=== PATIENT | female | born 1965 | race Caucasian/White ===

== ENCOUNTER 2020-06-02 08:00 | Inpatient (IN) | payer OTHER ==
[2020-06-06 09:09] VITALS: BMI 33.8
[2020-06-09] MEDS ORDERED: HEPARIN NA (PORCINE) 5,000 UNITS/ML 1ML VIAL ONE (15:21)
[2020-06-09] MEDS ORDERED: BENZOIN/ALOE VERA/STORAX/TOLU 58 ML BOTTLE ONE (15:22)
[2020-06-09] MEDS ORDERED: MIDAZOLAM HCL 2 MG/2 ML SINGLE DOSE VIAL ONE (15:28)
[2020-06-09] MEDS ORDERED: DEXMEDETOMIDINE HCL 200 MCG/2 ML IVPB ONE (15:37)
[2020-06-09] MEDS ORDERED: PROPOFOL 20 ML ONE ×16 (15:44→18:35)
[2020-06-09] MEDS ORDERED: DESFLURANE GAS 240 ML BOTTLE IH ONE (16:05)
[2020-06-09] MEDS ORDERED: VANCOMYCIN 1,000 MG VIAL (RESTRICTED TO ID ONLY) ONE (16:18)
[2020-06-09] MEDS ORDERED: TRANEXAMIC ACID 1000 MG/10 ML VIAL ONE ×2 (16:18→18:21)
[2020-06-09] MEDS ORDERED: ceFAZolin SODIUM 1 GM VIAL IVPB ONE (16:21)
[2020-06-09] MEDS ORDERED: fentaNYL CITRATE 250 MCG/5 ML VIAL ONE (16:24)
[2020-06-09] MEDS ORDERED: ROCURONIUM BROMIDE 100 MG/10 ML VIAL ONE ×2 (16:25→17:56)
[2020-06-09] MEDS ORDERED: VANCOMYCIN 1,000 MG VIAL (RESTRICTED TO ID ONLY) IVPB ONE (16:30)
[2020-06-09] MEDS ORDERED: NEOSTIGMINE METHYLSULFATE 0.5 MG/ML - 10 ML MDV ONE (18:27)
[2020-06-09] MEDS ORDERED: THROMBIN (BOVINE) 5,000 UNIT VIAL TP ONE (19:08)
--- NOTE | 2020-06-09 20:09 | PN ---
Progress Note (short form) - Note Progress Note: 54F s/p C5, C6 corpectomies, C4-C7 anterior cervical decompression, cage reconstruction, and instrumented fusion POD #0. -Airway observation: In case of emergency, remove anterior cervical spine dressing, trim single end loop, and pull out running suture; ok to cut suture if needed to decompress hematoma. -Maintain head of bed 30-45 degrees. -Pain medication: per anaesthesia team; oral meds (oxycodone preferred), no JURY CONSULTANT; NO NSAID's. -DVT PPx: -Mechanical only: PRADEEP's, SCD's. -Post-op Ancef x 3 doses. -f/u AM labs. -Incentive spirometry. -PT/OT/Rehab, OOB. -WBAT B/L LE. -PWB B/L UE: 5lbs. -d/c Mo catheter in PACU; f/u TOV (8 hours max). -Decadron 10mg IV at midnight tonight. -Keep dressing clean & dry. -No heavy lifting (>5 lbs), bending or twisting x 6 months post op. -Start with soft diet; advance diet as tolerated. -B/L UE & LE NV checks. -f/u post-op x-rays tomorrow. -Care per ICU & [facility] hospitalist team. -Discharge planning: f/u [facility] [place] office 7-10 days after discharge; call for appointment; . oTni Washington MD (Orthopaedic Surgery).
--- NOTE | 2020-06-09 20:10 | OP ---
Operative Note - Note: Operative Date: 06/09/20 Pre-Operative Diagnosis: 1. Severe C4-C7 spinal stenosis with associated myelopathy & radiculopathy. 2. C4-C7 kyphotic deformity. 3. C4-C7 axial instability with myofascial pain complex. 4. C4-C5, C5-C6, C6-C7 intervertberal disc disorders with associated spondylosis Operation: 1. C5, C6 corpectomies. 2. C4, C7 hemicorpectomies. 3. C4-C5, C5- C6, C6-C7 discectomies. 4. C4-C7 anterior column reconstruction with corpectomy cage. 5. C4-C5, C5-C6, C6-C7 anterior arthrodesis. 6. C4-C7 anterior instrumentation. 7. Kyphosis deformity correction with religious of lordosis. 8. Microsurgical dissection. 9. Bone autograft. 10. Bone allograft. 11. Fluoroscopy Findings: Severe spinal stenosis Implants: Cage: Choice Spine [place]: 36mm. Plate: Precision Spine [place]: 41mm. Screws: 4x12mm Post-Operative Diagnosis: Same as Pre-op Surgeon: Toni Washington Master Control Supervisor: Darrius Washington Anesthesiologist/REED MAKER: Casepr Delgadillo Anesthesia: General Specimens Removed: C4-C5, C5-C6, C6-C7 disc Estimated Blood Loss (mls): 300 Blood Volume Replaced (mls): 125 (Cell saver) Fluid Volume Replaced (mls): 1,800 (Crystalloid) Operative Report Dictated: Yes
[2020-06-09] MEDS ORDERED: ONDANSETRON 4 MG/2 ML VIAL IVPUSH PRN (20:25)
[2020-06-09] MEDS ORDERED: oxyCODONE HCL 5 MG TABLET PO PRN (20:25)
[2020-06-09] MEDS ORDERED: LACTATED RINGERS SOLUTION 1,000 ML IV SCH (20:30)
[2020-06-09] MEDS ORDERED: ACETAMINOPHEN INJECTION 100 ML IVPB ONE (20:32)
[2020-06-09] MEDS: ACETAMINOPHEN 1000 MG/100 ML VIAL (NON FORMULARY) IVPB SCH (20:45)
[2020-06-09] MEDS: LACTATED RINGERS SOLUTION 1,000 ML IV SCH (21:00)
[2020-06-09] MEDS ORDERED: LABETALOL HCL 5 MG/1 ML (100MG/20 ML VIAL) IVPUSH ONE (21:53)
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
[2020-06-09] MEDS: AMITRIPTYLINE HCL 25 MG TABLET PO SCH (23:22)
[2020-06-09] MEDS ORDERED: DEXAMETHASONE SOD PHOSPHATE 10 MG/1 ML VIAL IVPUSH ONE (23:30)
[2020-06-09] MEDS: oxyCODONE HCL 5 MG TABLET PO PRN (23:38)
[2020-06-10] MEDS: ceFAZolin 2 GRAM PREMIX BAG IVPB SCH ×3 (00:03→12:59)
[2020-06-10] MEDS: oxyCODONE HCL 5 MG TABLET PO PRN ×3 (04:38→21:17)
[2020-06-10] MEDS: ACETAMINOPHEN 1000 MG/100 ML VIAL (NON FORMULARY) IVPB SCH ×2 (04:39→12:58)
--- NOTE | 2020-06-10 07:13 | OP ---
DATE OF OPERATION: DATE OF DICTATION: 06/09/2020 SURGEON: Toni Washington MD SERVER SOFTWARE ENGINEER: Darrius Washington MD PREOPERATIVE DIAGNOSIS: C5-C6 disk prolapse with associated C5 and C6 stenosis and kyphosis cervical spine with cervical spondylogenic myelopathy. POSTOPERATIVE DIAGNOSIS: C5-C6 disk prolapse with associated C5 and C6 stenosis and kyphosis cervical spine with cervical spondylogenic myelopathy. OPERATION: 1. Corpectomy C5 and C6. 2. Partial corpectomy C4. 3. Partial corpectomy C7. 4. Insertion of interbody cage C4 to C7. 5. Anterior plating C4 to C7. 6. Anterior arthrodesis C4 to C7. ANESTHESIA: General anesthesia. ANTIBIOTICS GIVEN: Ancef 2 g, 1 g vancomycin preoperative; 10 mg of Decadron preoperative; and 10 mg of tranexamic acid utilized. Cell Saver utilized. IMAGING: Intraoperative neural monitoring utilized. Biplane fluoroscopy utilized. INDICATION FOR SURGERY: Patient had progressive combined radicular myelopathic symptoms and signs and confirmed MR indication of significant central canal stenosis at C5 and C6 with kyphotic deformity. OPERATION DETAILS: Patient correctly identified, brought in operating room. In the supine position, following general anesthesia, motor-evoked potentials were run through the patient, and then the patient was placed in the supine position in the extended neck position with the neck with a bolster placed behind the scapulae. This was extremely difficult because of the short, squat meso-ectomorphic patient morphology. In the supine position in the lines of Mushtaq, at the cricothyroid interval, an incision was made extending from just the left midline region across laterally measuring approximately 2 inches. The platysma was transected. The 2 large anterior jugular veins were transected and ligated. The subfascial plane was developed, developing the subfascial region, creating easy access to the subfascial plane proximally and distally, thus exposing the entire strap muscle structures with digital palpation lateral to the strap muscles from the right hand side, the viscera were retracted to the left and the great vessels and sheath of the great vessels retracted to the right. The raphe of the longus colli were readily identified using a peanut, a 90-90 degree angled 18-gauge spinal needle placed in the disk at C4-C5. This was verified under lateral fluoroscopic x-ray. Once this had been performed using the appropriate retractors for medial lateral retraction which remained a difficult exercise because of the short, squat thickness of the neck, the longus colli muscle was dissected off the actual bone bed. This was performed to enable seating of the teeth of the actual retractors to be placed and maintained within the longus colli muscle themselves. Two Gilbert pins were placed, one in the body of C4 and one in the body of C7 and the distractor outrigger applied to the Gilbert pins. It was impossible to visualize these pins because of the short, squat nature of her size and no ability to enjoy x-ray of visualization of these structures. The annuli of C4-C5, C5-C6, and C6-C7 under microscopic visualization were cut off the actual bone bed and then all the disk material at C4-C5, C5-C6, and C6-C7 removed using a simple curet. This enabled visualization of the disks right down to the posterior longitudinal ligament at each level. The light microscopy facilitated this readily. Using a Midas Román bur, some bone was removed, and then using Leksell rongeurs, as much bone was resected off the vertebral bodies of these 2 levels, that is, C5 and C6, and then a complete corpectomy performed using a murray-tipped rough bur all the way down to the posterior longitudinal ligaments, the endplates of C4 were flattened parallel to marrying up to the endplate of C7, that is, the superior endplate of C7 and the inferior endplate of C4. These were visualized as flat and parallel. The endplates were maintained as best we can, that is, the hard bone of the endplate to facilitate fixation of the cage. Once all bone had been removed, the remaining soft tissue off the theca was completely removed using a Kerrison upcuts, these were measuring size 1 and 2. The entire soft tissue elements were freed and the theca noted free bulging into the wound itself, complete decompression from cranial to caudal from C4 to C7 and mediolaterally brought out widely to facilitate positioning of a 12-mm wide cage. This was a [place] size 36 x 14 x 12-mm cage. The distraction enabled easy seating of the cage. This had to be gently tapped into position with the distraction device applied and then releasing the distraction. Ligamentotaxis enabled the bone bed to crush itself and sink into the cage, thus facilitating solid fixation of the cage. The cage was filled with bone putty. A size 41 Simplicity plate was applied and two 12-mm screws inserted into the body of C4 and two 12-mm screws inserted into the body of C7, solid fixation having been achieved. At no point were there any neuromonitoring problems. A Valsalva maneuver was performed at the end of the procedure, and this was held at 40 mmHg for about a 10-second period; no CSF leak and no hemorrhage from any leaking venous structures. The wounds were thoroughly lavaged throughout. Closure: Investing fascia 2-0 Vicryl, subcutaneous 2-0 Vicryl, skin 3-0 Monocryl, Steri-Strips, no drains applied. The wound was bone dry by the time we started wound closure. X-ray: Postoperative x-rays for best we could see revealed excellent positioning of the implants. No complications. Operation went well. Extremely difficult procedure because of her short but thick and obese morphology. MD AYESHA Celeste/[id number]
[2020-06-10 07:36] LABS: MCH 27.5 pg (25.7-33.7); MCHC 33.2 g/dl (32.0-36.0); MEAN PLT VOLUME 7.9 fl (7.5-11.1); PLATELET COUNT 307 K/MM3 (134-434); RBC 4.34 M/mm3 (3.60-5.2); RDW 14.1 % (11.6-15.6); WHITE BLOOD COUNT 14.8 K/mm3 (4.0-10.0)
[2020-06-10 07:41] LABS: BLOOD UREA NITROGEN 10.1 mg/dL (7-18); CALCIUM 8.9 mg/dL (8.5-10.1); CREATININE 0.8 mg/dL (0.55-1.3); PHOSPHOROUS 3.9 mg/dL (2.5-4.9); POTASSIUM 4.5 mmol/L (3.5-5.1)
--- NOTE | 2020-06-10 08:14 | PN ---
Progress Note (short form) - Note Progress Note: Anesthesia/Pain Pt seen and examined S:Alert and awake,comfortable O: Vital Signs Temperature 98.4 F 06/10/20 06:00 Pulse Rate 96 H 06/10/20 06:00 Respiratory Rate 18 06/10/20 06:00 Blood Pressure 152/90 06/10/20 06:00 O2 Sat by Pulse Oximetry (%) 96 06/10/20 06:00 CBC, BMP 06/10/20 05:45 06/10/20 05:45 A/P; s/p laminectomy Doing well post op Continue current care Robert Devlin M.D.
[2020-06-10] MEDS ORDERED: amLODIPine BESYLATE 5 MG TABLET (FP) PO ONE (09:00)
[2020-06-10] MEDS ORDERED: PT OWN MED DRAWER 7, Y5N ONE (09:09)
[2020-06-10] MEDS ORDERED: DULoxetine HCL 30 MG CAPSULE.DR PO ONE (09:09)
[2020-06-10] MEDS: DULoxetine HCL 60 MG CAPSULE.DR PO SCH (09:41)
--- NOTE | 2020-06-10 12:03 | PN ---
Physical Exam: SUBJECTIVE: Patient seen and examined. Endorses neck pain that is adequately managed with pain medications. OBJECTIVE: Vital Signs Period Temp Pulse Resp BP Sys/Carreno Pulse Ox Last 24 Hr 97.7 F-98.6 F 80-115 11-18 105-164/57-106 95-100 GENERAL: The patient is awake, alert, and fully oriented, in no acute distress. HEENT: Normal with no signs of trauma. PERRL, EOMI, MMM, neck bandaged LUNGS: Breath sounds equal, clear to auscultation bilaterally, no wheezes, no crackles, no accessory muscle use. HEART: Regular rate and rhythm, S1, S2 without murmur, rub or gallop. ABDOMEN: Soft, nontender, nondistended, normoactive bowel sounds, no guarding, no rebound EXTREMITIES: 2+ pulses, warm, well-perfused, no edema. Strength 5/5 throughout. Sensation intact throughout NEUROLOGICAL: Cranial nerves II through XII grossly intact. Normal speech, gait not observed. PSYCH: Normal mood, normal affect. SKIN: Warm, dry, normal turgor, no rashes or lesions noted Laboratory Results - last 24 hr 06/10/20 06/10/20 05:45 05:45 WBC 14.8 H RBC 4.34 Hgb 12.0 Hct 36.0 MCV 83.0 MCH 27.5 MCHC 33.2 RDW 14.1 Plt Count 307 MPV 7.9 Sodium 137 Potassium 4.5 Chloride 103 Carbon Dioxide 27 Anion Gap 7 L BUN 10.1 Creatinine 0.8 Est GFR (CKD-EPI)AfAm 95.52 Est GFR (CKD-EPI)NonAf 82.42 Random Glucose 169 H Calcium 8.9 Phosphorus 3.9 Magnesium 2.0 Active Medications Generic Name Dose Route Start Last Admin Trade Name Freq PRN Reason Stop Dose Admin Acetaminophen 1,000 mg 06/09/20 20:30 06/10/20 04:39 Ofirmev Injection - IVPB 06/10/20 12:31 1,000 mg Q8H EVITA Administration Amitriptyline HCl 25 mg 06/09/20 22:00 06/09/20 23:22 Elavil - PO Not Given HS EVITA Cefazolin Sodium/Dextrose 2 gm 06/10/20 01:00 06/10/20 06:05 Ancef 2 Gm Premixed Ivpb - IVPB 06/10/20 13:01 2 gm Q6H EVITA Administration Duloxetine HCl 60 mg 06/10/20 10:00 06/10/20 09:41 Cymbalta - PO 60 mg DAILY EVITA Administration Lactated Ringer's 1,000 mls @ 125 mls/hr 06/09/20 20:30 06/09/20 21:00 Lactated Ringers Solution IV 125 mls ASDIR EVITA Administration Ondansetron HCl 4 mg 06/09/20 20:25 Zofran Injection IVPUSH Q6H PRN NAUSEA AND/OR VOMITING Oxycodone HCl 5 mg 06/09/20 20:25 Roxicodone - PO Q4H PRN PAIN LEVEL 1-5 Oxycodone HCl 10 mg 06/09/20 20:25 06/10/20 10:36 Roxicodone - PO 10 mg Q4H PRN Administration PAIN LEVEL 6-10 ASSESSMENT/PLAN: 54 YO F with PMH Sjogrens, fibromyalgia, and osteoarthritis was admitted to ICU for post-op management for ICU S/P C5, C6 corpectomies, C4-C7 anterior cervical decompression, cage reconstruction, and instrumented fusion. POD#1 Neuro #POD#1 C5, C6 corpectomies, C4-C7 anterior cervical decompression, cage reconstruction, and instrumented fusion. - No NSAIDS, NO VENEER GLUER - oxycodone for pain - Maintain head of bed 30-45 degrees. - No heavy lifting (> 5 lbs), bending or twisting x 6 months post op Pulm -encourage Incentive spirometry use Cardio - patient was hypertensive overnight, but she denies PMH of HTN. S/p labetalol 10 mg IV push in PACU. Given amlodipine 5 mg PO Once this AM. -continue monitoring blood pressure GI - Zofran 4 mg IV push Q6H PRN for nausea Renal - marquez out in PACU -BUN/Cr 10.1/0.8 ID - Post-op Ancef x 3 doses Heme #Leukocytosis: WBCs 14.8 -likely 2/2 Decadron FEN - LR @ 125cc/hr - monitor lytes - NPO DVT ppx -Mechanical only: PRADEEP's, SCD's. DISPO ICU ATTENDING PHYSICIAN STATEMENT I saw and evaluated the patient. I reviewed the resident's note and discussed the case with the resident. I agree with the resident's findings and plan as documented. SUBJECTIVE: OBJECTIVE: ASSESSMENT AND PLAN:
[2020-06-10] MEDS: LACTATED RINGERS SOLUTION 1,000 ML IV SCH ×2 (13:01→21:06)
--- NOTE | 2020-06-10 15:45 | PN ---
Teaching Attending Note Name of Resident: David Rick ATTENDING PHYSICIAN STATEMENT I saw and evaluated the patient. I reviewed the resident's note and discussed the case with the resident. I agree with the resident's findings and plan as documented. SUBJECTIVE: 54 F, "Seasonal Asthma", dyslexia, sjogrens, fibromyalgia, and osteoarthritis. Seen in the ICU. POD #1 : S/P C5, C6 corpectomies, C4-C7 anterior cervical decompression, cage reconstruction, and instrumented fusion. Pain level : 4/10. Denies CP or SOB. Some sore throat. Migraine HARPER this AM. Hemodynamics have been stable. Intake & Output 06/07/20 06/08/20 06/09/20 06/10/20 23:59 23:59 23:59 23:59 Intake Total 2250 2300 Output Total 1100 1600 Balance 1150 700 Weight 185 lb Last Vital Signs Temp Pulse Resp BP Pulse Ox 98.0 F 103 H 13 135/86 96 06/10/20 14:00 06/10/20 14:00 06/10/20 14:00 06/10/20 14:00 06/10/20 14:00 Active Medications Amitriptyline HCl (Elavil -) 25 mg PO HS [facility] Last Admin: 06/09/20 23:22 Dose: Not Given Documented by: Duloxetine HCl (Cymbalta -) 60 mg PO DAILY [facility] Last Admin: 06/10/20 09:41 Dose: 60 mg Documented by: Lactated Ringer's (Lactated Ringers Solution) 1,000 mls @ 125 mls/hr IV ASDIR [facility] Last Admin: 06/10/20 13:01 Dose: 125 mls/hr Documented by: Ondansetron HCl (Zofran Injection) 4 mg IVPUSH Q6H PRN PRN Reason: NAUSEA AND/OR VOMITING Last Admin: 06/10/20 12:11 Dose: 4 mg Documented by: Oxycodone HCl (Roxicodone -) 5 mg PO Q4H PRN PRN Reason: PAIN LEVEL 1-5 Oxycodone HCl (Roxicodone -) 10 mg PO Q4H PRN PRN Reason: PAIN LEVEL 6-10 Last Admin: 06/10/20 10:36 Dose: 10 mg Documented by: REVIEW OF SYSTEMS: CONSTITUTIONAL: HARPER Absent: fever, chills, diaphoresis, generalized weakness, malaise, loss of appetite, weight change HEENT: Absent: rhinorrhea, nasal congestion, throat pain, throat swelling, difficulty swallowing, mouth swelling, ear pain, eye pain, visual changes CARDIOVASCULAR: Absent: chest pain, syncope, palpitations, irregular heart rate, lightheadedness, peripheral edema RESPIRATORY: Absent: cough, shortness of breath, dyspnea with exertion, orthopnea, wheezing, stridor, hemoptysis GASTROINTESTINAL: Absent: abdominal pain, abdominal distension, nausea, vomiting, diarrhea, constipation, melena, hematochezia GENITOURINARY: Absent: dysuria, frequency, urgency, hesitancy, hematuria, flank pain, genital pain MUSCULOSKELETAL: Absent: myalgia, arthralgia, joint swelling, back pain, neck pain SKIN: Absent: rash, itching, pallor HEMATOLOGIC/IMMUNOLOGIC: Absent: easy bleeding, easy bruising, lymphadenopathy, frequent infections ENDOCRINE: Absent: unexplained weight gain, unexplained weight loss, heat intolerance, cold intolerance NEUROLOGIC: Absent: headache, focal weakness or paresthesias, dizziness, unsteady gait, seizure, mental status changes, bladder or bowel incontinence PSYCHIATRIC: Absent: anxiety, depression, suicidal or homicidal ideation, hallucinations. PHYSICAL EXAMINATION Laboratory Results - last 24 hr 06/09/20 06/10/20 06/10/20 09:16 05:45 05:45 WBC 14.8 H RBC 4.34 Hgb 12.0 Hct 36.0 MCV 83.0 MCH 27.5 MCHC 33.2 RDW 14.1 Plt Count 307 MPV 7.9 Sodium 137 Potassium 4.5 Chloride 103 Carbon Dioxide 27 Anion Gap 7 L BUN 10.1 Creatinine 0.8 Est GFR (CKD-EPI)AfAm 95.52 Est GFR (CKD-EPI)NonAf 82.42 Random Glucose 169 H Calcium 8.9 Phosphorus 3.9 Magnesium 2.0 Crossmatch See Detail GENERAL: Awake and alert, NAD HEAD: Normal with no signs of trauma. EYES: EOMI ENT: Anterior incision site on neck bandaged. Moist mucous membranes LUNGS: CTA BL HEART: RRR, S1, S2 ABDOMEN: soft, non-tender, non-distended MSK: moving all limbs spontaneously, all limbs are warm, No edema BL legs NEUROLOGICAL: Non-focal SKIN: Warm, dry, no rashes or lesions noted. Laboratory Results - last 24 hr 06/09/20 06/10/20 06/10/20 09:16 05:45 05:45 WBC 14.8 H RBC 4.34 Hgb 12.0 Hct 36.0 MCV 83.0 MCH 27.5 MCHC 33.2 RDW 14.1 Plt Count 307 MPV 7.9 Sodium 137 Potassium 4.5 Chloride 103 Carbon Dioxide 27 Anion Gap 7 L BUN 10.1 Creatinine 0.8 Est GFR (CKD-EPI)AfAm 95.52 Est GFR (CKD-EPI)NonAf 82.42 Random Glucose 169 H Calcium 8.9 Phosphorus 3.9 Magnesium 2.0 Crossmatch See Detail ASSESSMENT/PLAN: POD #1 :S/P C5, C6 corpectomies, C4-C7 anterior cervical decompression, cage reconstruction, and instrumented fusion. "Seasonal Asthma" : Stable Dyslexia Sjogrens Fibromyalgia Osteoarthritis Pain control with Oxycodone Trial of IV Acetaminophen for HARPER Supplemental O2 as needed VTE prophylaxis No NSAIDS Maintain head of bed 30-45 degrees. Noted Decadron was given Incentive spirometry BP monitoring Post-op ABX OOB/PT/Activity per Surgery IVF PO as tolerated Floor when cleared by surgery Dr Burr
--- NOTE | 2020-06-10 16:26 | HOSP ---
Physical Examination Vital Signs: Vital Signs Temperature 98.0 F 06/10/20 14:00 Pulse Rate 103 H 06/10/20 14:00 Respiratory Rate 13 06/10/20 14:00 Blood Pressure 135/86 06/10/20 14:00 O2 Sat by Pulse Oximetry (%) 96 06/10/20 14:00 Constitutional: Yes: No Distress HENT: Yes: Atraumatic, Normocephalic Neck: Yes: Other (neck bandaged) Cardiovascular: Yes: Regular Rate and Rhythm, S1, S2 Respiratory: Yes: Regular, CTA Bilaterally Labs: CBC, BMP 06/10/20 05:45 06/10/20 05:45 Hospitalist Encounter Assessment: Patient is a 54 YO F with PMH Sjogrens, fibromyalgia, and osteoarthritis who was admitted to ICU for post-op management for ICU S/P C5, C6 corpectomies, C4-C7 anterior cervical decompression, cage reconstruction, and instrumented fusion. POD#1. For pain, patient received oxycodone and nausea was managed with zofran. Per ortho note, No NSAIDS, NO UNDER SHERIFF. Incentive spirometry use was encouraged. The head of bed was maintained at 30-45 degrees. Patient should not perform any heavy (> 5 lbs), bending or twisting x 6 months post op. Overnight, patient was hypertensive, but she denies PMH of HTN. S/p labetalol 10 mg IV push in PACU. Given amlodipine 5 mg PO Once this AM. In addition, WBCs were elevated at 14.8, which is likely due to the decadron. Per ortho, DVT prophylaxis should only be Mechanical (PRADEEP's, SCD's). Patient is stable for discharge.
[2020-06-10] MEDS ORDERED: ACETAMINOPHEN INJECTION 100 ML IVPB ONE (21:13)
[2020-06-10] MEDS: AMITRIPTYLINE HCL 25 MG TABLET PO SCH (21:17)
[2020-06-11 07:44] LABS: HEMATOCRIT 35.9 % (32.4-45.2); HEMOGLOBIN 11.6 GM/dL (10.7-15.3); MCHC 32.4 g/dl (32.0-36.0); MEAN CELL VOLUME 83.5 fl (80-96); MEAN PLT VOLUME 7.6 fl (7.5-11.1); PLATELET COUNT 339 K/MM3 (134-434); RDW 14.6 % (11.6-15.6); WHITE BLOOD COUNT 16.6 K/mm3 (4.0-10.0)
[2020-06-11 07:48] LABS: BLOOD UREA NITROGEN 10.8 mg/dL (7-18); CALCIUM 8.9 mg/dL (8.5-10.1); CREATININE 0.6 mg/dL (0.55-1.3); MAGNESIUM 2.4 mg/dL (1.8-2.4); PHOSPHOROUS 3.1 mg/dL (2.5-4.9); POTASSIUM 4.7 mmol/L (3.5-5.1)
[2020-06-11] MEDS ORDERED: DULoxetine HCL 30 MG CAPSULE.DR PO ONE (09:27)
[2020-06-11] MEDS: DULoxetine HCL 60 MG CAPSULE.DR PO SCH (09:31)
--- NOTE | 2020-06-11 11:52 | HOSP ---
Subjective - Review of Symptoms Events since last encounter: Medicine Service acceptance note: Subjective: Patient seen and examined at bedside. No acute overnight events. Does not endorse any complaints. Physical Examination Vital Signs: Vital Signs Temperature 98.6 F 06/11/20 10:00 Pulse Rate 100 H 06/11/20 10:00 Respiratory Rate 17 06/11/20 10:16 Blood Pressure 126/82 06/11/20 10:00 O2 Sat by Pulse Oximetry (%) 99 06/11/20 10:16 Findings/Remarks: GENERAL: The patient is awake, alert, and fully oriented, in no acute distress. HEAD: Normocephalic, atraumatic. EYES: PERRL, extraocular movements intact, sclera anicteric, conjunctiva clear. ENT: Oropharynx clear, without erythema or exudates. Moist mucous membranes. NECK: Anterior dressing, clean, dry, intact. Negative stridor auscultated. Supple without lymphadenopathy. LUNGS: Breath sounds equal, clear to auscultation bilaterally. No wheezes, no crackles. No accessory muscle use. HEART: Regular rate and rhythm. S1, S2 without murmur, rub or gallop. ABDOMEN: Soft, nondistended, nontender to light and deep palpation x4 quadrants. No rebound tenderness, no guarding. Normoactive bowel sounds x4 quadrants. No hepatosplenomegaly, no masses appreciated. EXTREMITIES: 2+ radial, dorsalis pedis pulses bilaterally. Warm, well-perfused. No lower extremity edema bilaterally. NEUROLOGICAL: Cranial nerves II through XII grossly intact. Normal speech. No gross focal deficits. PSYCH: Normal mood, normal affect upon my encounter. SKIN: Warm, dry. Labs: CBC, BMP 06/11/20 06:00 06/11/20 06:00 Hospitalist Encounter Assessment: Patient is a 54 year old female with history of Sjrogens, fibromyalgia, osteoarthritis admitted to ICU s/p C5, C6 corpectomies, C4, C7 hemicorpectomies, C4-C5, C5-C6, C6-C7 discectomies, C4-C7 anterior column reconstruction with corpectomy cage, C4-C5, C5-C6, C6-C7 anterior arthrodesis, C4-C7 anterior instrumentation. Cervical spinal stenosis -POD # 2 s/p orthopedic surgery -Pain management with Acetaminophen, Oxycodone (avoid NSAIDs, per Orthopedic Surgery) -Avoid lifting anything greater than 5 pounds, bending or twisting for six months postoperatively -Physical therapy evaluation -Incentive spirometer Leukocytosis -Suspect secondary to Decadron administered intra-operatively. Patient has remained afebrile -Patient received Ancef postoperatively -Monitor CBC, fever curve Hypertension -Initiated on Amlodipine 5mg PO daily. FEN -No IV fluids indicated. Tolerating oral fluids -Follow BMP -Puree diet. Advance as tolerated Disposition -Patient admitted to Medicine Service Transfer to Medical- Surgical floor. Visit type - Emergency Visit Emergency Visit: No - New Patient This patient is new to me today: Yes Date on this admission: 06/11/20 - Critical Care Critical Care patient: No
[2020-06-11] MEDS ORDERED: METOCLOPRAMIDE HCL INJECTION 10 MG/2 ML VIAL IVPB ONE (12:09)
[2020-06-11] MEDS ORDERED: ACETAMINOPHEN 650 MG/20.3 ML ORAL SOLUTION (CUPS) PO ONE (12:10)
--- NOTE | 2020-06-11 12:26 | PN ---
Teaching Attending Note Name of Resident: David Rick ATTENDING PHYSICIAN STATEMENT I saw and evaluated the patient. I reviewed the resident's note and discussed the case with the resident. I agree with the resident's findings and plan as documented. SUBJECTIVE: Pt seen and examined in the ICU. Pain relatively controlled. Ambulating with PT. OBJECTIVE: Vital Signs Period Temp Pulse Resp BP Sys/Carreno Pulse Ox Last 24 Hr 97.8 F-98.7 F 88-125 12-18 125-157/78-106 96-99 Intake & Output 06/08/20 06/09/20 06/10/20 06/11/20 23:59 23:59 23:59 23:59 Intake Total 2250 4100 1600 Output Total 1100 2000 500 Balance 1150 2100 1100 Weight 83.915 kg Gen: NAD at rest Heart: RRR Lung: decreased breath sounds at the bases Abd: soft, nontender Ext: no edema CBC, BMP 06/11/20 06:00 06/11/20 06:00 Active Medications Acetaminophen (Tylenol Oral Solution -) 650 mg PO ONCE ONE Stop: 06/11/20 12:11 Amitriptyline HCl (Elavil -) 25 mg PO HS [facility] Last Admin: 06/10/20 21:17 Dose: 25 mg Documented by: Duloxetine HCl (Cymbalta -) 60 mg PO DAILY [facility] Last Admin: 06/11/20 09:31 Dose: 60 mg Documented by: Lactated Ringer's (Lactated Ringers Solution) 1,000 mls @ 125 mls/hr IV ASDIR [facility] Last Admin: 06/10/20 21:06 Dose: Not Given Documented by: Metoclopramide HCl (Reglan Injection -) 10 mg IVPB ONCE ONE Stop: 06/11/20 12:10 Ondansetron HCl (Zofran Injection) 4 mg IVPUSH Q6H PRN PRN Reason: NAUSEA AND/OR VOMITING Last Admin: 06/10/20 12:11 Dose: 4 mg Documented by: Oxycodone HCl (Roxicodone -) 5 mg PO Q4H PRN PRN Reason: PAIN LEVEL 1-5 Oxycodone HCl (Roxicodone -) 10 mg PO Q4H PRN PRN Reason: PAIN LEVEL 6-10 Last Admin: 06/10/20 21:17 Dose: 10 mg Documented by: ASSESSMENT AND PLAN: Severe C4-C7 spinal stenosis with associated myelopathy & radiculopathy s/p C5, C6 corpectomies/C4, C7 hemicorpectomies/C4-C5, C5-C6, C6-C7 discectomies/C4-C7 anterior column reconstruction with corpectomy cage/C4-C5, C5-C6, C6-C7 anterior arthrodesis/C4-C7 anterior instrumentation Sjogrens Fibromyalgia OA - pain control - incentive spirometry - PO as tolerated - rehab/PT - DVT prophylaxis - can monitor on floor
--- NOTE | 2020-06-11 12:39 | PATH ---
Surgical Pathology Report Patient Name: MEHUL TO [facility]. Rec. #: [id number] /Age/Gender: 1965 (Age: 54) / F Account: [id number] Location: [facility] CATERING ASSISTANT Taken: 06/09/2020 Received: 06/10/2020 Reported: 06/11/2020 Physicians: Toni Washington M.D. Specimen(s) Received C5-C6 Clinical History Cervical spondylogenic myelopathy Final Diagnosis DISC, C5-C6, CORPECTOMY: BENIGN INTERVERTEBRAL DISC TISSUE. Electronically Signed Monica Garcia M.D. Gross Description Received in formalin labeled "C5-C6 disc," is a 3.0 x 3.0 x 0.3 cm aggregate of valencia fragments of fibrocartilaginous tissue. A loss control representative portion is submitted in one cassette. DL/06/10/2020 saudi/06/10/2020
--- NOTE | 2020-06-11 16:12 | PN ---
Physical Exam: SUBJECTIVE: Patient seen and examined. Endorses neck pain that is adequately managed with pain control. Endorses oxycodone 10 mg makes her feel "loopy." OBJECTIVE: Vital Signs Period Temp Pulse Resp BP Sys/Carreno Pulse Ox Last 24 Hr 97.9 F-98.7 F 88-125 12-18 106-157/65-106 95-99 GENERAL: The patient is awake, alert, and fully oriented, in no acute distress. HEENT: Normal with no signs of trauma. PERRL, EOMI, MMM, neck bandaged LUNGS: Breath sounds equal, clear to auscultation bilaterally, no wheezes, no crackles, no accessory muscle use. HEART: Regular rate and rhythm, S1, S2 without murmur, rub or gallop. ABDOMEN: Soft, nontender, nondistended, normoactive bowel sounds, no guarding, no rebound EXTREMITIES: 2+ pulses, warm, well-perfused, no edema. Strength 5/5 throughout. Sensation intact throughout NEUROLOGICAL: Cranial nerves II through XII grossly intact. Normal speech, gait not observed. PSYCH: Normal mood, normal affect. SKIN: Warm, dry, normal turgor, no rashes or lesions noted Laboratory Results - last 24 hr 06/09/20 06/11/20 06/11/20 09:16 06:00 06:00 WBC 16.6 H RBC 4.30 Hgb 11.6 Hct 35.9 MCV 83.5 MCH 27.0 MCHC 32.4 RDW 14.6 Plt Count 339 MPV 7.6 Sodium 139 Potassium 4.7 Chloride 104 Carbon Dioxide 31 Anion Gap 4 L BUN 10.8 Creatinine 0.6 Est GFR (CKD-EPI)AfAm 118.09 Est GFR (CKD-EPI)NonAf 101.89 Random Glucose 117 H Calcium 8.9 Phosphorus 3.1 Magnesium 2.4 Blood Type A POSITIVE Antibody Screen Negative Crossmatch See Detail Active Medications Generic Name Dose Route Start Last Admin Trade Name Freq PRN Reason Stop Dose Admin Amitriptyline HCl 25 mg 06/09/20 22:00 06/10/20 21:17 Elavil - PO 25 mg HS EVITA Administration Duloxetine HCl 60 mg 06/10/20 10:00 06/11/20 09:31 Cymbalta - PO 60 mg DAILY EVITA Administration Ondansetron HCl 4 mg 06/09/20 20:25 06/10/20 12:11 Zofran Injection IVPUSH 4 mg Q6H PRN Administration NAUSEA AND/OR VOMITING Oxycodone HCl 5 mg 06/09/20 20:25 Roxicodone - PO Q4H PRN PAIN LEVEL 1-5 Oxycodone HCl 10 mg 06/09/20 20:25 06/10/20 21:17 Roxicodone - PO 10 mg Q4H PRN Administration PAIN LEVEL 6-10 ASSESSMENT/PLAN: 54 YO F with PMH Sjogrens, fibromyalgia, and osteoarthritis was admitted to ICU for post-op management for ICU S/P C5, C6 corpectomies, C4-C7 anterior cervical decompression, cage reconstruction, and instrumented fusion. POD#2 Neuro #POD#2 C5, C6 corpectomies, C4-C7 anterior cervical decompression, cage reconstruction, and instrumented fusion. - No NSAIDS, NO MATERIAL CUTTER - oxycodone for pain - Maintain head of bed 30-45 degrees. - No heavy lifting (> 5 lbs), bending or twisting x 6 months post op #Migraine -tylenol Pulm -encourage Incentive spirometry use Cardio - patient was hypertensive overnight, but she denies PMH of HTN. -continue monitoring blood pressure GI - Zofran 4 mg IV push Q6H PRN for nausea Renal -BUN/Cr 10.8/0.6 ID - Post-op Ancef x 3 doses Heme #Leukocytosis: WBCs increased from 14.8 to 16.6 -likely 2/2 Decadron FEN - ivf stopped - monitor lytes - pureed diet DVT ppx -Mechanical only: PRADEEP's, SCD's. DISPO transfer to med surg ATTENDING PHYSICIAN STATEMENT I saw and evaluated the patient. I reviewed the resident's note and discussed the case with the resident. I agree with the resident's findings and plan as documented. SUBJECTIVE: OBJECTIVE: ASSESSMENT AND PLAN:
--- NOTE | 2020-06-11 18:32 | PN ---
Progress Note (short form) - Note Progress Note: POD#2 In ICU Apyrexial Awake Fully orientated Wound dressing Dry No swelling Voice raspy Swallowing normaly No aspiration Neuro Fully intact Subjective Hand discomfort gone Walked with PT as per patient PLAN Soft food only Mobilize with PT D/C home ? tomorrow Can transfer out of ICU
[2020-06-11] MEDS: AMITRIPTYLINE HCL 25 MG TABLET PO SCH (22:42)
[2020-06-12 07:53] LABS: HEMATOCRIT 34.4 % (32.4-45.2); HEMOGLOBIN 11.1 GM/dL (10.7-15.3); MCH 27.1 pg (25.7-33.7); MCHC 32.2 g/dl (32.0-36.0); MEAN CELL VOLUME 84.2 fl (80-96); MEAN PLT VOLUME 7.7 fl (7.5-11.1); PLATELET COUNT 316 K/MM3 (134-434); RBC 4.09 M/mm3 (3.60-5.2); RDW 14.5 % (11.6-15.6); WHITE BLOOD COUNT 11.8 K/mm3 (4.0-10.0)
[2020-06-12 08:25] LABS: BLOOD UREA NITROGEN 13.1 mg/dL (7-18); CALCIUM 8.8 mg/dL (8.5-10.1); CREATININE 0.7 mg/dL (0.55-1.3); MAGNESIUM 2.1 mg/dL (1.8-2.4); PHOSPHOROUS 3.8 mg/dL (2.5-4.9); POTASSIUM 4.4 mmol/L (3.5-5.1)
[2020-06-12] MEDS ORDERED: DULoxetine HCL 30 MG CAPSULE.DR PO ONE (09:46)
[2020-06-12] MEDS ORDERED: PT OWN MED DRAWER 7, Y5N ONE (09:46)
[2020-06-12] MEDS: DULoxetine HCL 60 MG CAPSULE.DR PO SCH (09:52)
[2020-06-12] MEDS ORDERED: oxyCODONE HCL 5 MG TABLET PO PRN (10:09)
--- NOTE | 2020-06-12 12:02 | DS ---
Physical Exam: SUBJECTIVE: Patient seen and examined OBJECTIVE: Vital Signs Period Temp Pulse Resp BP Sys/Carreno Pulse Ox Last 24 Hr 98.4 F-99.3 F 97-110 17-20 106-140/65-88 88-99 PHYSICAL EXAM GENERAL: The patient is awake, alert, and fully oriented, in no acute distress. HEAD: Normal with no signs of trauma. EYES: PERRL, extraocular movements intact, sclera anicteric, conjunctiva clear. ENT: Ears normal, nares patent, oropharynx clear without exudates, moist mucous membranes. NECK: Trachea midline, full range of motion, supple. LUNGS: Breath sounds equal, clear to auscultation bilaterally, no wheezes, no crackles, no accessory muscle use. HEART: Regular rate and rhythm, S1, S2 without murmur, rub or gallop. ABDOMEN: Soft, nontender, nondistended, normoactive bowel sounds, no guarding, no rebound, no hepatosplenomegaly, no masses. EXTREMITIES: 2+ pulses, warm, well-perfused, no edema. NEUROLOGICAL: Cranial nerves II through XII grossly intact. Normal speech, gait not observed. PSYCH: Normal mood, normal affect. SKIN: Warm, dry, normal turgor, no rashes or lesions noted. LABS Laboratory Results - last 24 hr 06/12/20 06/12/20 07:14 07:14 WBC 11.8 H RBC 4.09 Hgb 11.1 Hct 34.4 MCV 84.2 MCH 27.1 MCHC 32.2 RDW 14.5 Plt Count 316 MPV 7.7 Sodium 137 Potassium 4.4 Chloride 100 Carbon Dioxide 31 Anion Gap 6 L BUN 13.1 Creatinine 0.7 Est GFR (CKD-EPI)AfAm 112.26 Est GFR (CKD-EPI)NonAf 96.86 Random Glucose 107 H Calcium 8.8 Phosphorus 3.8 Magnesium 2.1 HOSPITAL COURSE: Date of Admission:06/09/20 Date of Discharge: 06/12/20 Minutes to complete discharge: 40 Discharge Summary Problems reviewed: Yes Reason For Visit: CERVICAL SPONDYLOGENIC MYELOPATHY Condition: Improved - Instructions Diet, Activity, Other Instructions: Dr. Washington Discharge Instructions for Cervical Fusion Post Operative Instructions Wound care Leave your surgical dressing in place. Do not change the dressing until seen by your surgeon in the office. No baths or showers. Do not submerge your incision. Do not apply any ointments or lotions to your incision. Please call the office if your dressing is soiled/dirty or is falling off. Diet There are no dietary restrictions. Eat healthy, high-fiber foods. Drink 6 to 8 glasses of liquid each day. This will assist in keeping your bowels are regular. Pain management Any pain prescription medication ordered should be taken as prescribed for moderate to severe pain. Do not take additional Tylenol while taking Percocet. Do not take anything containing aspirin or ibuprofen Call Dr. Washington for any of the following: Severe pain not relieved by medication Fever of 101 or higher Excessive bleeding or drainage on dressing Inability to urinate If you experience chest pain or shortness of breath, please seek emergency care immediately. Please call the office at to confirm your post-op appointment for the week following surgery. Referrals: Toni Washington MD [Staff Physician] - 1 Week (call for post op appointment) Darrius Washington MD [Staff Physician] - Disposition: HOME - Home Medications Comprehensive Discharge Medication List: Ambulatory Orders Amitriptyline HCl 25 mg PO HS 06/09/20 Duloxetine HCl 60 mg PO DAILY 06/09/20 Meloxicam 15 mg PO DAILY 06/09/20 oxyCODONE HCL [Roxicodone -] 5 mg PO Q4H PRN #14 tablet MDD 20mg 06/12/20 Prescription Drug Monitoring Program (I-STOP) results: I-STOP reviewed and no issues identified Problem List - Problems (1) S/P cervical spinal fusion Assessment/Plan: f/u with Dr Washington in 1 week Code(s): Z98.1 - ARTHRODESIS STATUS This patient is new to me today: Yes Date on this admission: 06/12/20 Emergency Visit: Yes ED Registration Date: 06/09/20 Care time: The patient presented to the Emergency Department on the above date and was hospitalized for further evaluation of their emergent condition. Critical Care patient: No - Discharge Referral Referred to [facility] Med P.C.: No
[2020-06-12 13:15] VITALS: PULSE 108; TEMP 98.7
[2020-06-12 14:35] VITALS: BP 112/70
--- NOTE | 2020-06-12 18:43 | PN ---
Teaching Attending Note Name of Resident: Chris Rodriguez ATTENDING PHYSICIAN STATEMENT I saw and evaluated the patient. I reviewed the resident's note and discussed the case with the resident. I agree with the resident's findings and plan as documented. SUBJECTIVE: Patient seen and examined at bedside, s/p C5-C6 corpectomy, C4-C7 decompression,POD#1, denies complaints, no overnight events, VSS. OBJECTIVE: GENERAL: Awake and alert, NAD HEAD: Normal with no signs of trauma. EYES: EOMI ENT: Anterior incision site on neck bandaged. Moist mucous membranes LUNGS: CTA BL HEART: RRR, S1, S2 ABDOMEN: soft, non-tender, non-distended MSK: moving all limbs spontaneously, all limbs are warm, No edema BL legs NEUROLOGICAL: Non-focal SKIN: Warm, dry, no rashes or lesions noted. Vital Signs (72 hours) 06/09/20 06/09/20 06/09/20 20:20 20:30 20:45 Temperature 98.5 F Pulse Rate 83 84 94 H Respiratory 13 11 11 Rate Blood Pressure 105/57 L 128/85 134/84 O2 Sat by Pulse 99 98 95 Oximetry (%) 06/09/20 06/09/20 06/09/20 21:00 21:15 21:30 Temperature Pulse Rate 98 H 95 H 100 H Respiratory 16 11 15 Rate Blood Pressure 144/90 141/75 161/98 O2 Sat by Pulse 98 98 100 Oximetry (%) 06/09/20 06/09/20 06/09/20 21:45 22:00 23:00 Temperature 98.5 F Pulse Rate 99 H 80 94 H Respiratory 14 16 16 Rate Blood Pressure 162/106 H 160/100 158/70 O2 Sat by Pulse 99 100 96 Oximetry (%) 06/10/20 06/10/20 06/10/20 00:15 01:00 02:00 Temperature 97.7 F Pulse Rate 91 H 94 H Respiratory 11 14 Rate Blood Pressure 155/98 160/98 O2 Sat by Pulse 97 96 Oximetry (%) 06/10/20 06/10/20 06/10/20 02:10 03:00 04:00 Temperature Pulse Rate 92 H 97 H 99 H Respiratory 12 14 14 Rate Blood Pressure 164/104 H 148/100 158/94 O2 Sat by Pulse 96 96 96 Oximetry (%) 1006/10/20 06/10/20 05:00 06:00 08:00 Temperature 98.4 F 97.7 F Pulse Rate 94 H 96 H 108 H Respiratory 16 18 18 Rate Blood Pressure 154/88 152/90 157/94 O2 Sat by Pulse 96 96 95 Oximetry (%) 06/10/20 06/10/20 06/10/20 10:00 12:00 14:00 Temperature 97.8 F 97.9 F 98.0 F Pulse Rate 115 H 110 H 103 H Respiratory 12 12 13 Rate Blood Pressure 140/97 134/95 135/86 O2 Sat by Pulse 95 95 96 Oximetry (%) 06/10/20 06/10/20 06/10/20 16:00 18:00 19:00 Temperature 97.8 F 97.9 F Pulse Rate 112 H 125 H 103 H Respiratory 13 17 14 Rate Blood Pressure 134/89 149/93 143/89 O2 Sat by Pulse 96 97 96 Oximetry (%) 06/10/20 06/10/20 06/10/20 20:00 21:00 22:00 Temperature 98.4 F Pulse Rate 110 H 101 H 108 H Respiratory 14 12 18 Rate Blood Pressure 140/78 132/98 134/87 O2 Sat by Pulse 96 96 96 Oximetry (%) 06/10/20 06/11/20 06/11/20 23:00 00:00 02:00 Temperature 98.6 F Pulse Rate 91 H 88 90 Respiratory 14 18 14 Rate Blood Pressure 134/87 142/88 157/93 O2 Sat by Pulse 96 96 96 Oximetry (%) 06/11/20 06/11/20 06/11/20 04:00 06:00 08:00 Temperature 98.2 F 98.7 F Pulse Rate 92 H 94 H 105 H Respiratory 16 16 17 Rate Blood Pressure 151/106 H 148/100 134/89 O2 Sat by Pulse 96 96 99 Oximetry (%) 06/11/20 06/11/20 06/11/20 10:00 10:16 12:00 Temperature 98.6 F Pulse Rate 100 H 98 H Respiratory 17 17 17 Rate Blood Pressure 126/82 125/81 O2 Sat by Pulse 98 99 Oximetry (%) 06/11/20 06/11/20 06/11/20 14:00 14:10 16:00 Temperature 98.5 F 98.5 F 98.4 F Pulse Rate 98 H 98 H 99 H Respiratory 17 17 17 Rate Blood Pressure 106/65 106/65 129/85 O2 Sat by Pulse 95 97 Oximetry (%) 06/11/20 06/11/20 06/11/20 18:00 20:00 22:00 Temperature 98.6 F 98.4 F Pulse Rate 110 H 98 H 98 H Respiratory 17 17 17 Rate Blood Pressure 126/80 126/84 140/88 O2 Sat by Pulse 99 99 99 Oximetry (%) 06/11/20 06/12/20 06/12/20 23:40 01:28 06:00 Temperature 99.3 F 98.5 F Pulse Rate 108 H 97 H Respiratory 18 20 Rate Blood Pressure 138/85 126/78 O2 Sat by Pulse 97 99 88 L Oximetry (%) 06/12/20 06/12/20 09:00 14:00 Temperature 98.7 F 98.7 F Pulse Rate 108 H 108 H Respiratory 20 20 Rate Blood Pressure 120/53 L 112/70 O2 Sat by Pulse 95 95 Oximetry (%) Laboratory Results - last 24 hr 06/12/20 06/12/20 07:14 07:14 WBC 11.8 H RBC 4.09 Hgb 11.1 Hct 34.4 MCV 84.2 MCH 27.1 MCHC 32.2 RDW 14.5 Plt Count 316 MPV 7.7 Sodium 137 Potassium 4.4 Chloride 100 Carbon Dioxide 31 Anion Gap 6 L BUN 13.1 Creatinine 0.7 Est GFR (CKD-EPI)AfAm 112.26 Est GFR (CKD-EPI)NonAf 96.86 Random Glucose 107 H Calcium 8.8 Phosphorus 3.8 Magnesium 2.1 Home Medications Medication Instructions Recorded Amitriptyline HCl 25 mg PO HS 06/09/20 Duloxetine HCl 60 mg PO DAILY 06/09/20 Meloxicam 15 mg PO DAILY 06/09/20 oxyCODONE HCL [Roxicodone -] 5 mg PO Q4H PRN #14 tablet MDD 20mg 06/12/20 Current Medications Generic Name Dose Route Start Last Admin Trade Name Freq PRN Reason Stop Dose Admin Amitriptyline HCl 25 mg 06/09/20 22:00 06/11/20 22:42 Elavil - PO 25 mg HS EVITA Administration Duloxetine HCl 60 mg 06/10/20 10:00 06/12/20 09:52 Cymbalta - PO 60 mg DAILY EVITA Administration Ondansetron HCl 4 mg 06/09/20 20:25 06/10/20 12:11 Zofran Injection IVPUSH 4 mg Q6H PRN Administration NAUSEA AND/OR VOMITING Oxycodone HCl 5 mg 06/12/20 10:09 06/12/20 12:26 Roxicodone - PO 5 mg Q4H PRN Administration PAIN LEVEL 6-10 ASSESSMENT AND PLAN: 54 F S/P C5, C6 corpectomies, C4-C7 anterior cervical decompression, cage reconstruction, and instrumented fusion, POD #1 Asthma Sjogren's syndrome Fibromyalgia Osteoarthritis Depression Plan: Cont. abx Steroids per NSG team restart anti-depressants Opioids for pain control, Tylenol for mild pain/HARPER Supplemental O2, HOB elevation, SS evaluation NSG team following DVT ppx: per NSG team Transfer to floors
== END 2020-06-12 20:10 | disposition home or self-care (01) | DRG 472 ==
LOC: J2C 06-09 04:50 → JICU 06-09 21:35 → J8W 06-11 23:42
PROVIDERS: ADMIT Orthopaedic Surgery Orthopaedic Surgery of the Spine; ATTEND Nurse Practitioner Acute Care
PROC: 0PB30ZZ Excision of Cervical Vertebra, Open Approach (ICD-10-PCS; 2020-06-09)
PROC: 00NW0ZZ Release Cervical Spinal Cord, Open Approach (ICD-10-PCS; 2020-06-09)
PROC: 0PS304Z Reposition Cervical Vertebra with Internal Fixation Device, Open Approach (ICD-10-PCS; 2020-06-09)
PROC: B01BZZZ Fluoroscopy of Spinal Cord (ICD-10-PCS; 2020-06-09)
PROC: 4A1004G Monitoring of Central Nervous Electrical Activity, Intraoperative, Open Approach (ICD-10-PCS; 2020-06-09)
PROC: 0RG10A0 Fusion of Cervical Vertebral Joint with Interbody Fusion Device, Anterior Approach, Anterior Column, Open Approach (ICD-10-PCS; principal; 2020-06-09 11:25)
DX: M48.02 Spinal stenosis, cervical region (principal); M50.00 Cervical disc disorder with myelopathy, unspecified cervical region; M40.202 Unspecified kyphosis, cervical region; M54.12 Radiculopathy, cervical region; I97.3 Postprocedural hypertension; D72.829 Elevated white blood cell count, unspecified; J45.998 Other asthma; R48.0 Dyslexia and alexia; M79.7 Fibromyalgia; F32.9 Major depressive disorder, single episode, unspecified
CPT/HCPCS: 36415; 72050-TC-FY; 76000-TC-FY; 80048; 83735; 84100; 85027; 86900; 86922; 88304-TC; 94010; 94760; 97116-GP; 97162-GP; J0131; J1100; J1644